=== PATIENT | female | born 1985 | race Caucasian/White ===

== ENCOUNTER 2022-12-28 19:39 | Emergency (ER) | payer OTHER, SELFPAY ==
--- NOTE | ~2022-12-28 | XR_ITS ---
EXAMINATION: XR chest 1V portable Exam Date/Time: 12/28/2022 21:01 CDT HISTORY: Chest pain Comparison: None available. RESULT: Lines, tubes, and devices: None. Lungs and pleura: Clear. Cardiomediastinal silhouette: Normal. Other: No acute osseous or upper abdominal finding. IMPRESSION: No acute cardiopulmonary process. Reviewed, dictated and finalized at location K.
[2022-12-28 19:41] VITALS: BP 151/88; PULSE 140; RESP 22; TEMP 36.3; O2SAT 100
[2022-12-28 19:59] LABS: Basophils Absolute Auto 0.1 K/mm3 (0.0-0.1); Basophils Percent Auto 0.6 % (0.2-1.2); Eosinophils Percent Auto 0.2 % (0-4.4); Hematocrit 44.2 % (37.0-47.0); Hemoglobin 14.5 g/dL (12.0-15.0); Immature Granulocyte Absolute 0.06 K/mm3 (0.00-0.031); Immature Granulocyte Percent A 0.4 % (0-0.5); Lymphocytes Absolute Auto 3.73 K/mm3 (0.9-3.2); Lymphocytes Percent Auto 26.5 % (18.3-44.2); Mean Corpuscular HGB Conc 32.8 g/dl (32-36); Mean Corpuscular Volume 88.4 fl (80-100); Mean Platelet Volume 9.9 fl (7.4-10.4); Monocytes Absolute Auto 1.1 K/mm3 (0.1-0.6); Monocytes Percent Auto 7.6 % (2.6-8.5); Neutrophils Absolute Auto 9.1 K/mm3 (1.3-6.7); Neutrophils Percent Auto 64.7 % (45.5-73.1); Platelet Count Result 543 k/mm3 (150-375); Red Cell Distribution Width 13.1 % (11.5-14.5); White Blood Count 14.1 K/mm3 (4.5-10.0)
[2022-12-28 20:10] LABS: Ethanol < 10 mg/dL (<10)
[2022-12-28 20:11] LABS: Alanine Aminotransferase 28 U/L (6-35); Albumin Level 5.1 g/dL (3.5-5.1); Alkaline Phosphatase 76 U/L (38-126); Anion Gap 13 mmol/L (8-16); Aspartate Amino Transferase 31 U/L (14-36); Bilirubin,Total 1.4 mg/dL (0.2-1.3); Blood Urea Nitrogen 15 mg/dL (7-17); Calcium 9.5 mg/dL (8.4-10.2); Carbon Dioxide 20 mmol/L (22-30); Chloride 105 mmol/L (98-107); Estimated CRCL calculation 66 ml/min; Estimated Glomerular Filt Rate > 60; Glucose 129 mg/dL (65-110); Potassium 4.7 mmol/L (3.4-5.0); Sodium 138 mmol/L (137-145)
--- NOTE | 2022-12-28 20:31 | PC.NURSE ---
patient has $326.00 in carpenter in purse. counted with both patient and data analyst report writer. 300$ in 20s, $10 in 10s, 16$ in 1s
--- NOTE | 2022-12-28 21:03 | ECG_ITS ---
Measurements Intervals [place] Rate: 81 P: 15 NH: 98 QRS: 78 QRSD: 100 T: 54 QT: 350 QTc: 407 Interpretive Statements SINUS RHYTHM WITH SINUS ARRHYTHMIA WITH SHORT NH INTERVAL BASELINE ARTIFACT- I, III, AVL, AVF BORDERLINE ECG NO PREVIOUS ECG AVAILABLE FOR COMPARISON Electronically Signed On 12-28-2022 21:12:53 CDT by Josesito Pfeiffer D.O.
[2022-12-28 21:06] LABS: Amphetamine Screen Urine Positive (Negative); Barbiturate Screen Urine Negative (Negative); Benzodiazepines Screen Urine Negative (Negative); Cannabinoid Screen Urine Positive (Negative); Cocaine Screen Urine Positive (Negative); Methadone Screen Urine Negative (Negative); Opiate Screen Urine Negative (Negative); Phencyclidine Screen Urine Negative (Negative)
[2022-12-28 21:07] LABS: Appearance Urine Cloudy (Clear); Bacteria Urine 2+ /hpf; Bilirubin Urine 1+ (Negative); Blood Urine 1+ (Negative); Color Urine Dark Yellow (Yellow); Glucose Urine UA Negative (Negative); Hyaline Casts Urine Present /lpf; Ketones Urine 1+ mg/dL (Negative); Leukocyte Esterase Ur Negative LEU/UL (Negative); Mucus Urine Present /lpf; Need Manual Microscopic Reviewed; Nitrate Urine Negative (Negative); Non Pathogenic Casts >20; Protein Urine 2+ mg/dL (Negative); Specific Grav Ur 1.027 (1.001-1.035); Squamous Epithelial Cell Urine Many /hpf (Few)
[2022-12-28 21:09] LABS: Add Urine Microscopic? YES
[2022-12-28] MEDS: LORazepam (*CRX) 1 MG TABLET PO (21:09)
[2022-12-28 21:27] LABS: Influenza A QL RT-PCR Negative (Negative); Influenza B QL RT-PCR Negative (Negative); SARS-CoV-2 RNA PCR Negative (Negative)
--- NOTE | 2022-12-28 21:27 | ED.GENADULT ---
HPI - General Adult General Chief complaint: Psychiatric Symptoms Stated complaint: crisis, SI Time Seen by Provider: 12/28/22 20:20 History of Present Illness HPI narrative: this is a 37-year-old female with history of anxiety and depression presenting ED for suicidal ideation. She says she does not feel good. This BUN for years but worse over the last couple weeks due to increased anxiety. She says that she does not want wake up in the morning. She does not have access to a firearm. She does not have a plan for suicide. She denies homicidal ideation or hallucinations. She denies use of drugs or alcohol. patient has been having multiple panic attacks which she associates with chest The resides with the anxiety attacks. She is not currently the experiencing Related Data Allergies Allergy/AdvReac Type Severity Reaction Status Date / Time No Known Allergies Allergy Mild Verified 12/28/22 19:39 [facility] Past Medical History Medical History (Updated 12/30/22 @ 00:00 by [facility]) BMI 20.0-20.9, adult Body mass index (BMI) 19 to less than 21 Irritable bowel syndrome with diarrhea Small intestinal bacterial overgrowth (SIBO) Family History Family History Father Lymphoma Acute myocardial infarction Non Hodgkin's lymphoma Mother Thyroid activity decreased Louisa's disease Sibling No problems noted. 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 EYES: EOMI, NOSE: Atraumatic NECK: Trachea midline RESPIRATORY: No increased rate of breathing, clear to auscultation CARDIOVASCULAR: RRR, no peripheral edema ABDOMINAL: Non-distended soft nontender no guarding or rebound MUSCULOSKELETAl: No obvious deformities NEURO: Alert. Moving 4/4 extremities SKIN:: Warm, dry. Normal color PSYCHIATRIC: anxious and emotionally labile Course Course Emergency Course: 0700: Signed out to oncoming physician pending transfer to psych facility on a voluntary basis. Vital Signs Vital signs: Vital Signs Temperature 97.3 F L 12/28/22 19:41 Pulse Rate 140 H 12/28/22 19:41 Respiratory Rate 22 H 12/28/22 19:41 Blood Pressure 151/88 H 12/28/22 19:41 Pulse Oximetry 100 12/28/22 19:41 Oxygen Delivery Room Air 12/28/22 19:41 Temperature 98 F 12/29/22 06:18 Pulse Rate 95 12/29/22 09:35 Respiratory Rate 20 12/29/22 09:35 Blood Pressure 131/83 12/29/22 09:35 Pulse Oximetry 100 12/29/22 09:35 Oxygen Delivery Room Air 12/28/22 19:41 Medical Decision Making MDM Narrative Medical decision making narrative: -Presentation: 37-year-old female presenting with anxiety and suicidal ideation. 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 She lives alone with her dog. -External Chart Review: None -Hx from independent Sources: none -Discussion of Management/Consultants: Crisis Center -Independent interpretation of studies: CBC showed a white count of 14. Likely s
[2022-12-28 22:28] VITALS: BP 130/74; PULSE 80; RESP 16; O2SAT 100
--- NOTE | 2022-12-28 23:52 | PC.NURSE ---
Crisis here to speak w/ pt.
[2022-12-29 02:22] LABS: Acetaminophen < 10 ug/mL (10-30)
--- NOTE | 2022-12-29 04:18 | PC.NURSE ---
Required papers faxed back to [facility] in [place], [place].
[2022-12-29 06:18] VITALS: BP 123/74; PULSE 77; RESP 18; TEMP 36.6; O2SAT 99
--- NOTE | 2022-12-29 06:19 | PC.NURSE ---
Report given to Rufina TAMEZ at [facility]
--- NOTE | 2022-12-29 06:25 | PC.NURSE ---
Contacted [facility] to set up transportations services to take pt to [facility]. Dispatch states since this is considered a long distance transportation, they will need approval from table games supervisor and will call back w/ an ETA .
--- NOTE | 2022-12-29 06:52 | PC.NURSE ---
[facility] nurses station number: [phone]
--- NOTE | 2022-12-29 09:32 | PC.NURSE ---
EDP aware of CSRR. Ok with sitter being pulled.
[2022-12-29 09:35] VITALS: BP 131/83; PULSE 95; RESP 20; O2SAT 100
== END 2022-12-29 10:26 ==
PROVIDERS: Emergency Provider Emergency Medicine; PCP Family Medicine
DX: R45.851 Suicidal ideations (principal); F41.9 Anxiety disorder, unspecified; F15.90 Other stimulant use, unspecified, uncomplicated; F14.90 Cocaine use, unspecified, uncomplicated; F12.90 Cannabis use, unspecified, uncomplicated; Z20.822 Contact with and (suspected) exposure to COVID-19; K58.0 Irritable bowel syndrome with diarrhea
CPT/HCPCS: 36415; 71045; 80053; 80307; 81001; 81025; 84443; 85025; 87086; 87636; 93005; 99285; A9270

== ENCOUNTER 2024-02-15 14:09 | Emergency (ER) | payer OTHER, SELFPAY ==
[2024-02-15 14:07] VITALS: BP 134/85; PULSE 120; RESP 16; TEMP 36.7; O2SAT 100
[2024-02-15 14:28] LABS: Basophils Percent Auto 0.4 % (0.2-1.2); Eosinophils Percent Auto 0.1 % (0-4.4); Hematocrit 42.2 % (37.0-47.0); Hemoglobin 13.9 g/dL (12.0-15.0); Immature Granulocyte Absolute 0.03 K/mm3 (0.00-0.031); Immature Granulocyte Percent A 0.3 % (0-0.5); Lymphocytes Absolute Auto 3.23 K/mm3 (0.9-3.2); Lymphocytes Percent Auto 34.5 % (18.3-44.2); Mean Corpuscular HGB Conc 32.9 g/dl (32-36); Mean Corpuscular Hemoglobin 28.8 pg (26-34); Mean Corpuscular Volume 87.6 fl (80-100); Monocytes Absolute Auto 0.8 K/mm3 (0.1-0.6); Neutrophils Absolute Auto 5.2 K/mm3 (1.3-6.7); Neutrophils Percent Auto 55.7 % (45.5-73.1); Platelet Count Result 403 k/mm3 (150-375); Red Blood Count 4.82 M/mm3 (4.2-5.4); Red Cell Distribution Width 12.6 % (11.5-14.5); White Blood Count 9.4 K/mm3 (4.5-10.0)
[2024-02-15 14:35] LABS: Ethanol < 10 mg/dL (<10)
[2024-02-15 14:37] LABS: Alanine Aminotransferase 12 U/L (6-35); Albumin Level 4.9 g/dL (3.5-5.1); Alkaline Phosphatase 79 U/L (38-126); Anion Gap 8 mmol/L (4-12); Aspartate Amino Transferase 21 U/L (14-36); Bilirubin,Total 1.2 mg/dL (0.2-1.3); Blood Urea Nitrogen 16 mg/dL (7-17); Calcium 9.5 mg/dL (8.4-10.2); Carbon Dioxide 25 mmol/L (22-30); Chloride 104 mmol/L (98-107); Estimated CRCL calculation 64 ml/min; Estimated Glomerular Filt Rate > 60; Glucose 112 mg/dL (65-110); Potassium 4.3 mmol/L (3.4-5.0); Sodium 137 mmol/L (137-145)
[2024-02-15 14:54] LABS: Appearance Urine Cloudy (Clear); Bacteria Urine 3+ /hpf; Bilirubin Urine Negative (Negative); Blood Urine Negative (Negative); Color Urine Dark Yellow (Yellow); Glucose Urine UA Negative (Negative); Ketones Urine 1+ mg/dL (Negative); Leukocyte Esterase Ur Negative LEU/UL (Negative); Mucus Urine Present /lpf; Need Manual Microscopic Reviewed; Nitrate Urine Negative (Negative); Protein Urine Trace mg/dL (Negative); RBC Urine 0-2 /hpf (0-2); Squamous Epithelial Cell Urine Moderate /hpf (Few); WBC Urine 0-5 /hpf (0-3); pH Urine 5.5 (5.0-9.0)
[2024-02-15 14:55] LABS: Add Urine Microscopic? YES; Amphetamine Screen Urine Negative (Negative); Barbiturate Screen Urine Negative (Negative); Benzodiazepines Screen Urine Negative (Negative); Cannabinoid Screen Urine Positive (Negative); Cocaine Screen Urine Negative (Negative); Methadone Screen Urine Negative (Negative); Opiate Screen Urine Negative (Negative); Phencyclidine Screen Urine Negative (Negative)
--- NOTE | 2024-02-15 14:56 | ED.GENADULT ---
HPI - General Adult General Chief complaint: Psychiatric Symptoms Stated complaint: SI Time Seen by Provider: 02/15/24 14:16 History of Present Illness HPI narrative: 48-year-old female presenting to the emergency department for evaluation for suicidal ideation. Patient does have a previous psych history and had been taking duloxetine, Wellbutrin, Abilify and lamotrigine but stop taking the Abilify and the bladder drained approximately 2 weeks ago. Patient states she uses taking too many medications and did not want to take for medications. Patient states after stopping the Abilify and lamotrigine that she had worsening psych symptoms. Patient reports decreased p.o. intake. Patient states that she has had increased suicidal thoughts and does have a plan. Patient did not confirm that she wants to act on this plan. Patient does have a prior history of inpatient psych treatment at [facility] last December, patient does not want to go back to that facility. Related Data Home Medications Medication Instructions Recorded Confirmed aripiprazole 5 mg tablet 5 mg PO QHS 01/13/23 01/13/23 bupropion HCl 150 mg 24 hr tablet, 150 mg PO QAM 01/13/23 01/13/23 extended release duloxetine 30 mg capsule,delayed 60 mg PO DAILY 01/13/23 01/13/23 release (Cymbalta) hydroxyzine pamoate 50 mg capsule 50 mg PO QID PRN 01/13/23 01/13/23 trazodone 50 mg tablet 50 mg PO QHS PRN 01/13/23 01/13/23 Allergies Allergy/AdvReac Type Severity Reaction Status Date / Time No Known Allergies Allergy Mild Verified 01/13/23 12:50 Review of Systems Review of Systems: All systems reviewed & are unremarkable except as noted in HPI and below PMFSH Past Medical History Medical History BMI 20.0-20.9, adult Body mass index (BMI) 19 to less than 21 Irritable bowel syndrome with diarrhea Small intestinal bacterial overgrowth (SIBO) Family History Family History Father Lymphoma Acute myocardial infarction Non Hodgkin's lymphoma Mother Thyroid activity decreased Louisa's disease Sibling No problems noted. 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 HEAD: normocephalic, atraumatic. EYES: PERRLA/EOMI, conjunctivae clear. NOSE: Normal no drainage EARS:TMS clear with good light reflex. THROAT: Pharynx clear, no exudate. NECK: Supple. No adenopathy, no masses. RESPIRATORY: Airway patent, respirations nonlabored. Clear to auscultation bilaterally, no rales, rhonchi, wheezing. CARDIOVASCULAR: Regular rate and rhythm without murmurs rubs or gallops. ABDOMINAL: Soft, nontender, nondistended, normal bowel sounds MUSCULOSKELETAL: Moves all extremities. Strength/ROM intact, No edema, No calf tenderness. NEURO: Alert. Cranial nerves II through XII intact. Grossly intact SKIN: Warm, dry. Normal Color Course Vital Signs Vital signs: Vital Signs Temperature 98.1 F 02/15/24 14:07 Pulse Rate 120 H 02/15/24 14:07 Respiratory Rate 16 02/15/24 14:07 Blood Pressure 134/85 02/15/24 14:07 Pulse Oximetry 100 02/15/24 14:07 Oxygen Delivery Room Air 02/15/24 14:07 Temp
[2024-02-15 15:02] LABS: SARS-CoV-2 RNA PCR Negative (Negative)
--- NOTE | 2024-02-15 15:06 | ECG_ITS ---
Test Date: 2024-02-15 15:17:01 Measurements Intervals [place] Rate: 54 P: -20 VA: 124 QRS: 71 QRSD: 96 T: 61 QT: 427 QTc: 405 Interpretive Statements SINUS BRADYCARDIA No previous ECG available for comparison Electronically Signed On 02-16-2024 14:28:20 CDT by Parag Sawyer M.D.
[2024-02-15 15:46] LABS: Acetaminophen < 10 ug/mL (10-30); Ethanol < 10 mg/dL (<10); Salicylate < 1.0 mg/dL (2-20)
[2024-02-15] MEDS: LORazepam (*CRX) 1 MG TABLET PO (16:35)
--- NOTE | 2024-02-15 17:30 | PC.NURSE ---
patient evaluated and given safety plan by CRISIS, provider in agreement with plan of care. she took wellbutrin and duloxetine from medication she brought with her and states that she takes lamictal and abilify at night and is refusing to take at this time
[2024-02-15 17:31] VITALS: BP 126/82; PULSE 99; RESP 20; O2SAT 100
== END 2024-02-15 17:32 | disposition home or self-care (01) ==
PROVIDERS: Emergency Provider Emergency Medicine; PCP Family Medicine
DX: F32.A Depression, unspecified (principal); T43.596A Underdosing of other antipsychotics and neuroleptics, initial encounter; T42.6X6A Underdosing of other antiepileptic and sedative-hypnotic drugs, initial encounter; Z91.128 Patient's intentional underdosing of medication regimen for other reason; Z11.52 Encounter for screening for COVID-19; K58.0 Irritable bowel syndrome with diarrhea; Z77.22 Contact with and (suspected) exposure to environmental tobacco smoke (acute) (chronic); Z79.899 Other long term (current) drug therapy; R00.1 Bradycardia, unspecified
CPT/HCPCS: 36415; 80053; 80307; 81001; 81025; 84443; 85025; 87635; 93005; 99284; A9270

== ENCOUNTER 2025-05-29 21:43 | Emergency (ER) | payer OTHER, SELFPAY ==
--- OUTSIDE RECORDS SUMMARY | 2012-11-08 10:00 | XMS_ITS | Continuity of Care Document ---
Author Organization [facility] Address [address] [place] [address] [place] [address] Phone Care Team Providers Care Tarp Repairer Name Role Phone Yovanny Daly OD Unavailable Unavailable Procedures Procedure Date Routine Exam-Establ Pt Contact Lens Check Contact Lens Fitting, Medical Superv Jan Refractive Evaluation Advance Directives Directive Yes / No Effective Date File Name No Information Encounters Encounter Description Practice Location Reason(s) For Visit Diagnoses Date Provider Providers Copied on Encounter [facility], [address] [place] [address] [address], [place], [place], [id number], tel:[phone] [facility] No Information Addy Hairston. [address], [facility], . tel:[phone] Referring Provider: Yovanny Aguilera, [address], [facility]. tel:[phone] [facility], [address] [place] [address] [address], [place], [place], [id number], tel:[phone] [facility] No Information Addy Hairston. [address], [facility], [place]. tel:[phone] Referring Provider: Yovanny Aguilera, [address], [facility]. tel:[phone] [facility], [address] [facility], [place], [place], [id number], tel:[phone] [facility] No Information Addy ROBERTSON Yovanny. 200 [facility], [address], [facility], . tel:[phone] Referring Provider: Yovanny Aguilera, [address], [facility]. tel:[phone] [facility], [address] [facility], [place], [place], [id number], tel:[phone] [facility] No Information Addy ROBERTSON Yovanny. 200 [facility], [address], [facility], . tel:[phone] Referring Provider: Yovanny Aguilera, [address], [facility]. tel:[phone] Family History Family Member Type Diagnosis Age At Onset No Information Payers Payer name Insurance type Covered alliance party ID Authoriza tion(s) No Information Social History Type Description Quantity Date Captured Comments Sex Female Smoking Status No Information Chief Complaint And Reason For Visit No Information Reason For Referral Reason For Referral No Information History Of Present Illness Encounter Date Complaint History Of Prese nt Illness No Information Functional Status Date Functional Assessmen t No Information Instructions Date Instruction Additional Infor mation No Information Assessments Type Assessment Date No Information Patient Care Teams Name Effective Dates (start - stop) Status Members No Information
[2025-05-29 21:59] VITALS: BP 149/92; PULSE 58; RESP 18; TEMP 36.5; O2SAT 100
--- OUTSIDE RECORDS SUMMARY | 2025-05-29 22:37 | XMS_ITS | Patient Health Record ---
Author Organization [facility] As [facility] Address [address] [place] [address] Care Team Providers Care Oracle Specialist Name Role Phone Lonnie BOYKIN, William Primary Care Provider Robyn Grady Unavailable [phone] Allergies No Known Allergies Reason For Referral No Information Medications Medication SIG (Take, Route, Frequency, Duration) Notes Start Date End Date Status DULoxetine HCl 60 MG Capsule Delayed Release Particles 1 capsule Oral Once a day; Duration: 90 days Active DULoxetine HCl 30 MG Capsule Delayed Release Particles 1 capsule Orally Once a day; Duration: 30 days TOTAL 90 MG DAILY 03/20/2025 Active ARIPiprazole 5 MG Tablet 1 tablet at bedtime Orally Once a day; Duration: 30 days Active Social History Tobacco Use: Social History Observation Description Date Details (start date - stop date) Never Smoker NA - NA Sex Assigned At : Social History Observation Description Sex Assigned At Female Social History Sexual History: Social Info Question Answer Notes Sexual History Had sex in the past 12 months (vaginal, oral, or anal)? Yes with Men only Household: Social Info Question Answer Notes Household Marital status: single Number of adults in household: 1 Number of children in household: 0 Any household pets? Yes dog Drug/Alcohol: Social Info Question Answer Notes Drugs Have you used drugs other than those for medical reasons in the past 12 months? Yes Marijuana? Yes AUDIT-C (Standard) Did you have a drink containi ng alcohol in the past year? Yes How often did you have six or more drinks on one occasion in the past year? Less than monthly (1 point) How many drinks did you have on a typical day when you were drinking in the past year? 3 or 4 drinks (1 point) How often did you have a drink containing alcohol in the past year? 2 to 4 times a month (2 points) Caffeine Intake: 1-2 cups per day Tobacco Use: Social Info Question Answer Notes Tobacco Control (Standard) Tobacco use: Nonsmoker Additional Details Category Social Info Options Details Migrated Social History Migrated Social History Alcohol Intake: Moderate 01/14/2023,Tobacco Years: Never smoker 11/26/2022, Alcohol Intake: Moderate 01/14/2023,Tobacco Years: Never smoker 11/26/2022 Drug/Alcohol: Do you smoke marijuana? Admits Do you drink alcohol? Yes, Socia lly Section Notes: Do you or have you ever smok ed tobacco?: Never smokerHow much tobacco do you smoke?: NoneDo you or have you ever used any other forms of tobacco or nicotine?: NoDo you or have you ever used e-cigarettes or vape?: Never used electronic cigarettesWhat was the date of your most recent tobacco screening?: 09/06/2023Has tobacco cessation counseling been provided?: NoWhat is your level of alcohol consumption?: ModerateHow many years have you consumed alcohol?: 15Have you ever been counseled for unhealthy alcohol use?: NoDo you use any illicit or recreational drugs?: YesWhich illicit or recreational drugs have you used?: Marijuana and cocaineHave you used IV drugs?: NoWhat is your level of caffeine consumption?: HeavyEducation and OccupationWhat is the highest grade or level of school you have completed or the highest degree you have received?: Bachelor's degree (e.g., BA, AB, BS)Are you currently in school?: NoAre you currently employed?: YesWho is your employer?: [place] [employer] and [place]riage and SexualityWhat is your relationship status?: SingleAre you sexually active?: YesDo you use protection during sex?: UsuallyHow many children do you have?: 0Home and EnvironmentAre you a caregiver?: NoAre there any guns present in your home?: NoLifestyleDo you participate in social media?: YesDo you use your seat belt or car seat routinely?: YesAdvance DirectiveDo you have an advance directive?: NoWhat is your code status?: Full CodeDo you have a medical power of securities attorney?: NoPublic Health and TravelHave you been to an area known to be high risk for COVID-19?: NoGender Identity and LGBTQ IdentityGender identity: Identifies as FemaleAssigned sex at : FemalePronouns: she/herSexual orientation: Straight or heterosexual Problems Problem Type SNOMED Code ICD Code Onset Dates Problem Status W/U Status Risk Notes Problem Information temporarily unavailable Major depressive disorder, recurrent, mild (F33.0) 4 Active confirmed Problem Information temporarily unavailable Major depressive disorder, recurrent severe without psychotic features (F33.2) 4 Active confirmed Problem Information temporarily unavailable Generalized anxiety disorder (F41.1) 4 Active confirmed Problem Information temporarily unavailable Primary insomnia (F51.01) 4 Active confirmed Problem Information temporarily unavailable Other intermediate (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 (Z79.899) 4 Active confirmed Problem Information temporarily unavailable MDD (major depressive disorder), recurrent episode, moderate (F33.1) Active confirmed Problem Information temporarily unavailable Suicidal risk (R45.89) Active confirmed Problem Information temporarily unavailable Suicidal ideation (R45.851) Active confirmed Vital Signs Heart Rate 53 /min 04/16/2025 Respiratory Rate 16 /min 03/20/2025 Height-cm 162.56 cm 04/16/2025 Blood pressure diastolic 78 mm Hg 04/16/2025 Weight-kg 49.44 kg 04/16/2025 Height 64.00 in 04/16/2025 Blood pressure systolic 119 mm Hg 04/16/2025 Weight 109 lbs 04/16/2025 BMI 18.71 kg/m2 04/16/2025 Encounters Encounter Location Date Provider Diagnosis [facility] [employer] [address] [address] 08/03/2024 Robyn Curiel [facility] [employer] [facility] [address] [address] 10/31/2024 Robyn Curiel Major depressive disorder, recurrent, mild F33.0 ; Generalized anxiety disorder F41.1 ; Primary insomnia F51.01 ; Other 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 Z79.899 ; Suicidal risk R45.89 and Suicidal ideation R45.851 [facility] [employer] [facility] [address] [facility] [address] [place] [address] 01/30/2025 [facility] [place] [address] [address] 03/06/2025 Robyn Thermac [facility], [address] [address] 03/20/2025 Robyn Thermac Generalized anxiety disorder F41.1 ; MDD (major depressive disorder), recurrent episode, moderate F33.1 ; Primary insomnia F51.01 ; Other intermediate (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 Z79.899 ; Suicidal risk R45.89 and Suicidal ideation R45.851 [facility] [employer] [place] [address] [address] 04/11/2025 Robyn [facility]mac Generalized anxiety disorder F41.1 ; Major depressive disorder, recurrent severe without psychotic features F33.2 ; Primary insomnia F51.01 ; Other 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 Z79.899 ; Suicidal risk R45.89 and Suicidal ideation R45.851 [facility] [employer] [place] [address] [address] 04/16/2025 Robyn [facility]mac Generalized anxiety disorder F41.1 ; Major depressive disorder, recurrent, mild F33.0 ; Primary insomnia F51.01 ; Other 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 Z79.899 ; Suicidal risk R45.89 and Suicidal ideation R45.851 [facility] [employer] [address] [address] 05/07/2025 Robynjayne Curiel [facility], [address] [address] 03/20/2025 Robyn [facility]mac [facility], [place] [address] [address] [facility] [address] [address] 04/11/2025 Robyn Curiel Assessments Encounter Date Diagnosis (ICD Code) Assessment Notes Treatment Notes Treatment Clinical Notes Section Notes 04/16/2025 Major depressive disorder, recurrent, mild (ICD-10 - F33.0) 1. depression - - patient has hx inpatient [place] 12/2022 discuss and educated on all rx Abilify 5 mg at bedtime- improved depression on rx last week Second generation antipsychotics (SGAs) have metabolic syndrome issues with weight gain, increase in prolactin, increased waist circumference, increased lipids, and increased glucose. Thus routine monitoring of weight, metabolic labs, etc. is indicated. A general rank ordering of antipsychotics that have the greatest to the least risk of metabolic effects is olanzapine, quetiapine, risperidone, ziprasidone, and aripiprazole. However, weight gain can occur with all of these drugs and considerable variability exists among patients receiving the same drug regarding the risk of metabolic effects. Anti-psychotic agents not only increase the risk of metabolic disorder, they also increase the risk of CVA, akathisia, and movement disorders including EPS or tardive dyskinesia (more common with first generation antipsychotics) and more. - [facility] 06/22 FLIA forms completed- need to have updated for 04/23 dates off work - completed today duloxetine 90 mg capsule, daily in am for depression and anxiety no refill needed 2. Generalized anxiety disorder - Cymblata 90 mg daily continue therapy- Patient reported does not want to attend [facility] again r/t work discuss walk in clinic to see Bea at [facility] - will go PRN plans to go to work program then refer to therapist with job SSRI side effects discussed including but not limited to, gastric upset, nausea, vomiting, diarrhea and/or constipation, weight changes, sexual side effects including loss of libido, increased suicidal thoughts/behavio rs in children and young adults, and serotonin syndrome. educated on all medications, benefits, side effects and risk, and educated on depression, anxiety, and ADHD, mood d/o and educated on compliance of medications, metabolic and movement d/o education appointment's, continue therapy discussion with patient about course of treatmentand patient instructions. education on serotonin syndrome 3. Primary insomnia - sleep hygeine 4.passive suicide thoughts- Improved on Abilify no plans or intent educated on [phone] Support system safety plan- friend stay with her plan to go to Bea therapy [facility] 04/12/25 limited rx at a time no weapons in home go to nearest ER if have passive/active thoughts, plans or intent schedule therapy- on wait list- has work options to call for therapist walk in clinic therapist discuss with [facility] Long-term drug therapy. 04/16/2025 Generalized anxiety disorder (ICD-10 - F41.1) Learning About Generalized Anxiety Disorder material was published, Generalized Anxiety Disorder: Care Instructions material was published, Learning About Anxiety Disorders material was published, Learning About Generalized Anxiety Disorder material was published, Generalized Anxiety Disorder: Care Instructions material was published, Learning About Anxiety Disorders material was published, Learning About Generalized Anxiety Disorder material was published 1. depression - - patient has hx inpatient [place] 12/2022 discuss and educated on all rx Abilify 5 mg at bedtime- improved depression on rx last week Second generation antipsychotics (SGAs) have metabolic syndrome issues with weight gain, increase in prolactin, increased waist circumference, increased lipids, and increased glucose. Thus routine monitoring of weight, metabolic labs, etc. is indicated. A general rank ordering of antipsychotics that have the greatest to the least risk of metabolic effects is olanzapine, quetiapine, risperidone, ziprasidone, and aripiprazole. However, weight gain can occur with all of these drugs and considerable variability exists among patients receiving the same drug regarding the risk of metabolic effects. Anti-psychotic agents not only increase the risk of metabolic disorder, they also increase the risk of CVA, akathisia, and movement disorders including EPS or tardive dyskinesia (more common with first generation antipsychotics) and more. - [facility] 06/22 FLMA forms completed- need to have updated for 04/23 dates off work - completed today duloxetine 90 mg capsule, daily in am for depression and anxiety no refill needed 2. Generalized anxiety disorder - Cymblata 90 mg daily continue therapy- Patient reported does not want to attend [facility] again r/t work discuss walk in clinic to see Bea at [facility] - will go PRN plans to go to work program then refer to therapist with job SSRI side effects discussed including but not limited to, gastric upset, nausea, vomiting, diarrhea and/or constipation, weight changes, sexual side effects including loss of libido, increased suicidal thoughts/behavio rs in children and young adults, and serotonin syndrome. educated on all medications, benefits, side effects and risk, and educated on depression, anxiety, and ADHD, mood d/o and educated on compliance of medications, metabolic and movement d/o education appointment's, continue therapy discussion with patient about course of treatmentand patient instructions. education on serotonin syndrome 3. Primary insomnia - sleep hygeine 4.passive suicide thoughts- Improved on Abilify no plans or intent educated on [phone]/911 Support system safety plan- friend stay with her plan to go to Bea therapy [facility] 04/12/25 limited rx at a time no weapons in home go to nearest ER if have passive/active thoughts, plans or intent schedule therapy- on wait list- has work options to call for therapist walk in clinic therapist discuss with [facility] Long-term drug therapy. 04/11/2025 Major depressive disorder, recurrent severe without psychotic features (ICD-10 - F33.2) Preventing Depression From Coming Back: Care Instructions material was published, Depression Treatment: Care Instructions material was published, Seasonal Affective Disorder: Care Instructions material was published, Learning About Depression material was published, Learning About Depression Screening material was published, Learning About How to Get Help During a Mental Health Crisis material was published, Recovering From Depression: Care Instructions material was published, Depression and Chronic Disease: Care Instructions material was published, Learning About Antidepressants material was published, Learning About Transcranial Magnetic Stimulation (TMS) material was published, Suicidal Thoughts and Behavior: Care Instructions material was published, Learning About Mood Disorders material was published 1. depression - - patient has inpatient [place] 12/2022 discuss and educated on add Abilify 5 mg at bedtime Second generation antipsychotics (SGAs) have metabolic syndrome issues with weight gain, increase in prolactin, increased waist circumference, increased lipids, and increased glucose. Thus routine monitoring of weight, metabolic labs, etc. is indicated. A general rank ordering of antipsychotics that have the greatest to the least risk of metabolic effects is olanzapine, quetiapine, risperidone, ziprasidone, and aripiprazole. However, weight gain can occur with all of these drugs and considerable variability exists among patients receiving the same drug regarding the risk of metabolic effects. Anti-psychotic agents not only increase the risk of metabolic disorder, they also increase the risk of CVA, akathisia, and movement disorders including EPS or tardive dyskinesia (more common with first generation antipsychotics) and more. - [facility] 06/22 FLMA forms completed- need to have updated for 04/23 dates off work - patient will send new forms duloxetine 90 mg capsule, daily in am for depression and anxiety no refill needed 2. Generalized anxiety disorder - Cymblata 90 mg daily continue therapy- pateint will call [facility] - Patient reported does not want to attend [facility] again r/t work discuss walk in clinic to see Bea at [facility] - plans to go 04/12/25 SSRI side effects discussed including but not limited to, gastric upset, nausea, vomiting, diarrhea and/or constipation, weight changes, sexual side effects including loss of libido, increased suicidal thoughts/behavio rs in children and young adults, and serotonin syndrome. educated on all medications, benefits, side effects and risk, and educated on depression, anxiety, and ADHD, mood d/o and educated on compliance of medications, metabolic and movement d/o education appointment's, continue therapy discussion with patient about course of treatmentand patient instructions. education on serotonin syndrome 3. Primary insomnia - sleep hygeine 4.passive suicide thoughts no plans or intent educated on [id number]/911 Support system safety plan- friend stay with her plan to go to [facility] 04/12/25 limited rx at a time no weapons in home go to nearest ER if have passive/active thoughts, plans or intent schedule therapy- on wait list- has work options to call for therapist walk in clinic therapist discuss with [facility] Long-term drug therapy. 04/11/2025 Generalized anxiety disorder (ICD-10 - F41.1) Learning About Generalized Anxiety Disorder material was published, Generalized Anxiety Disorder: Care Instructions material was published, Learning About Anxiety Disorders material was published, Learning About Generalized Anxiety Disorder material was published, Generalized Anxiety Disorder: Care Instructions material was published, Learning About Anxiety Disorders material was published, Learning About Generalized Anxiety Disorder material was published 1. depression - - patient has hx inpatient [place] 12/2022 discuss and educated on add Abilify 5 mg at bedtime Second generation antipsychotics (SGAs) have metabolic syndrome issues with weight gain, increase in prolactin, increased waist circumference, increased lipids, and increased glucose. Thus routine monitoring of weight, metabolic labs, etc. is indicated. A general rank ordering of antipsychotics that have the greatest to the least risk of metabolic effects is olanzapine, quetiapine, risperidone, ziprasidone, and aripiprazole. However, weight gain can occur with all of these drugs and considerable variability exists among patients receiving the same drug regarding the risk of metabolic effects. Anti-psychotic agents not only increase the risk of metabolic disorder, they also increase the risk of CVA, akathisia, and movement disorders including EPS or tardive dyskinesia (more common with first generation antipsychotics) and more. - [facility] 06/22 FLIA forms completed- need to have updated for 04/23 dates off work - patient will send new forms duloxetine 90 mg capsule, daily in am for depression and anxiety no refill needed 2. Generalized anxiety disorder - Cymblata 90 mg daily continue therapy- pateint will call [facility] program [facility] for new therapist - Patient reported does not want to attend [facility] again r/t work discuss walk in clinic to see Bea at [facility] - plans to go 04/12/25 SSRI side effects discussed including but not limited to, gastric upset, nausea, vomiting, diarrhea and/or constipation, weight changes, sexual side effects including loss of libido, increased suicidal thoughts/behavio rs in children and young adults, and serotonin syndrome. educated on all medications, benefits, side effects and risk, and educated on depression, anxiety, and ADHD, mood d/o and educated on compliance of medications, metabolic and movement d/o education appointment's, continue therapy discussion with patient about course of treatmentand patient instructions. education on serotonin syndrome 3. Primary insomnia - sleep hygeine 4.passive suicide thoughts no plans or intent educated on [phone] Support system safety plan- friend stay with her plan to go to Bea therapy [facility] 04/12/25 limited rx at a time no weapons in home go to nearest ER if have passive/active thoughts, plans or intent schedule therapy- on wait list- has work options to call for therapist walk in clinic therapist discuss with [facility] Long-term drug therapy. 10/31/2024 Major depressive disorder, recurrent, mild (ICD-10 - F33.0) Learning About Depression material was published, Preventing Depression From Coming Back: Care Instructions material was published, Learning About Depression Screening material was published, Seasonal Affective Disorder: Care Instructions material was published, Preventing Depression From Coming Back: Care Instructions material was published, Learning About How to Get Help During a Mental Health Crisis material was published, Learning About Depression material was published, Learning About Depression Screening material was published 1. depression - - patient has hx inpatient [facility] 12/2022 - [facility] 06/22 duloxetine 60 mg capsule, 2. Generalized anxiety disorder - Cymblata 60 mg daily continue therapy SSRI side effects discussed including but not limited to, gastric upset, nausea, vomiting, diarrhea and/or constipation, weight changes, sexual side effects including loss of libido, increased suicidal thoughts/behavio rs in children and young adults, and serotonin syndrome. educated on all medications, benefits, side effects and risk, and educated on depression, anxiety, and ADHD, mood d/o and educated on compliance of medications, metabolic and movement d/o education appointment's, continue therapy discussion with patient about course of treatmentand patient instructions. education on serotonin syndrome 3. Primary insomnia - sleep hygeine 4. Long-term drug therapy. 03/20/2025 Generalized anxiety disorder (ICD-10 - F41.1) Learning About Generalized Anxiety Disorder material was published, Generalized Anxiety Disorder: Care Instructions material was published, Learning About Anxiety Disorders material was published, Learning About Generalized Anxiety Disorder material was published, Generalized Anxiety Disorder: Care Instructions material was published, Learning About Anxiety Disorders material was published 1. depression - - patient has hx inpatient [place] 12/2022 - [employer] 06/22 FLMA forms completed increase duloxetine 90 mg capsule, daily in am for increase depression and anxiety patient just recieved 90 days of 60 mg dose no refill needed rx sent Cymbalta 30 mg dose 2. Generalized anxiety disorder - Cymblata 90 mg daily continue therapy- pateint will call [employer] for new therapist and also will see Bea in walk in clinic [facility] SSRI side effects discussed including but not limited to, gastric upset, nausea, vomiting, diarrhea and/or constipation, weight changes, sexual side effects including loss of libido, increased suicidal thoughts/behavio rs in children and young adults, and serotonin syndrome. educated on all medications, benefits, side effects and risk, and educated on depression, anxiety, and ADHD, mood d/o and educated on compliance of medications, metabolic and movement d/o education appointment's, continue therapy discussion with patient about course of treatmentand patient instructions. education on serotonin syndrome 3. Primary insomnia - sleep hygeine 4. Long-term drug therapy. 03/20/2025 MDD (major depressive disorder), recurrent episode, moderate (ICD-10 - F33.1) 1. depression - - patient has hx inpatient [place] 12/2022 - [employer] 06/22 FLMA forms completed increase duloxetine 90 mg capsule, daily in am for increase depression and anxiety patient just recieved 90 days of 60 mg dose no refill needed rx sent Cymbalta 30 mg dose 2. Generalized anxiety disorder - Cymblata 90 mg daily continue therapy- pateint will call [employer] for new therapist and also will see Bea in walk in clinic RIYA SSRI side effects discussed including but not limited to, gastric upset, nausea, vomiting, diarrhea and/or constipation, weight changes, sexual side effects including loss of libido, increased suicidal thoughts/behavio rs in children and young adults, and serotonin syndrome. educated on all medications, benefits, side effects and risk, and educated on depression, anxiety, and ADHD, mood d/o and educated on compliance of medications, metabolic and movement d/o education appointment's, continue therapy discussion with patient about course of treatmentand patient instructions. education on serotonin syndrome 3. Primary insomnia - sleep hygeine 4. Long-term drug therapy. 03/20/2025 Primary insomnia (ICD-10 - F51.01) Learning About Sleeping Well material was published, Insomnia: Care Instructions material was published, Insomnia: Care Instructions material was published, Learning About Sleeping Well material was published 1. depression - - patient has hx inpatient [place] 12/2022 - [facility] [place] 06/22 FLMA forms completed increase duloxetine 90 mg capsule, daily in am for increase depression and anxiety patient just recieved 90 days of 60 mg dose no refill needed rx sent Cymbalta 30 mg dose 2. Generalized anxiety disorder - Cymblata 90 mg daily continue therapy- pateint will call [facility] for [facility] therapist and also will see Bea in walk in clinic [facility]YA SSRI side effects discussed including but not limited to, gastric upset, nausea, vomiting, diarrhea and/or constipation, weight changes, sexual side effects including loss of libido, increased suicidal thoughts/behavio rs in children and young adults, and serotonin syndrome. educated on all medications, benefits, side effects and risk, and educated on depression, anxiety, and ADHD, mood d/o and educated on compliance of medications, metabolic and movement d/o education appointment's, continue therapy discussion with patient about course of treatmentand patient instructions. education on serotonin syndrome 3. Primary insomnia - sleep hygeine 4. Long-term drug therapy. 10/31/2024 Generalized anxiety disorder (ICD-10 - F41.1) Learning About Generalized Anxiety Disorder material was published, Generalized Anxiety Disorder: Care Instructions material was published, Learning About Anxiety Disorders material was published, Learning About Generalized Anxiety Disorder material was published, Generalized Anxiety Disorder: Care Instructions material was published, Learning About Anxiety Disorders material was published 1. depression - - patient has inpatient [place] 12/2022 - [facility] 06/22 duloxetine 60 mg capsule, 2. Generalized anxiety disorder - Cymblata 60 mg daily continue therapy SSRI side effects discussed including but not limited to, gastric upset, nausea, vomiting, diarrhea and/or constipation, weight changes, sexual side effects including loss of libido, increased suicidal thoughts/behavio rs in children and young adults, and serotonin syndrome. educated on all medications, benefits, side effects and risk, and educated on depression, anxiety, and ADHD, mood d/o and educated on compliance of medications, metabolic and movement d/o education appointment's, continue therapy discussion with patient about course of treatmentand patient instructions. education on serotonin syndrome 3. Primary insomnia - sleep hygeine 4. Long-term drug therapy. 04/11/2025 Primary insomnia (ICD-10 - F51.01) Learning About Sleeping Well material was published, Insomnia: Care Instructions material was published, Insomnia: Care Instructions material was published, Learning About Sleeping Well material was published 1. depression - - patient has inpatient [place] 12/2022 discuss and educated on add Abilify 5 mg at bedtime Second generation antipsychotics (SGAs) have metabolic syndrome issues with weight gain, increase in prolactin, increased waist circumference, increased lipids, and increased glucose. Thus routine monitoring of weight, metabolic labs, etc. is indicated. A general rank ordering of antipsychotics that have the greatest to the least risk of metabolic effects is olanzapine, quetiapine, risperidone, ziprasidone, and aripiprazole. However, weight gain can occur with all of these drugs and considerable variability exists among patients receiving the same drug regarding the risk of metabolic effects. Anti-psychotic agents not only increase the risk of metabolic disorder, they also increase the risk of CVA, akathisia, and movement disorders including EPS or tardive dyskinesia (more common with first generation antipsychotics) and more. - [facility] 06/22 FLMA forms completed- need to have updated for 04/23 dates off work - patient will send new forms duloxetine 90 mg capsule, daily in am for depression and anxiety no refill needed 2. Generalized anxiety disorder - Cymblata 90 mg daily continue therapy- pateint will call [facility] for new therapist - Patient reported does not want to attend [facility] again r/t work discuss walk in clinic to see Bea at [facility] - plans to go 04/12/25 SSRI side effects discussed including but not limited to, gastric upset, nausea, vomiting, diarrhea and/or constipation, weight changes, sexual side effects including loss of libido, increased suicidal thoughts/behavio rs in children and young adults, and serotonin syndrome. educated on all medications, benefits, side effects and risk, and educated on depression, anxiety, and ADHD, mood d/o and educated on compliance of medications, metabolic and movement d/o education appointment's, continue therapy discussion with patient about course of treatmentand patient instructions. education on serotonin syndrome 3. Primary insomnia - sleep hygeine 4.passive suicide thoughts no plans or intent educated on [id number] Support system safety plan- friend stay with her plan to go to Bea therapy [facility] 04/12/25 limited rx at a time no weapons in home go to nearest ER if have passive/active thoughts, plans or intent schedule therapy- on wait list- has work options to call for therapist walk in clinic therapist discuss with [facility] Long-term drug therapy. 04/16/2025 Primary insomnia (ICD-10 - F51.01) Learning About Sleeping Well material was published, Insomnia: Care Instructions material was published, Insomnia: Care Instructions material was published, Learning About Sleeping Well material was published 1. depression - - patient has hx inpatient [place] 12/2022 discuss and educated on all rx Abilify 5 mg at bedtime- improved depression on rx last week Second generation antipsychotics (SGAs) have metabolic syndrome issues with weight gain, increase in prolactin, increased waist circumference, increased lipids, and increased glucose. Thus routine monitoring of weight, metabolic labs, etc. is indicated. A general rank ordering of antipsychotics that have the greatest to the least risk of metabolic effects is olanzapine, quetiapine, risperidone, ziprasidone, and aripiprazole. However, weight gain can occur with all of these drugs and considerable variability exists among patients receiving the same drug regarding the risk of metabolic effects. Anti-psychotic agents not only increase the risk of metabolic disorder, they also increase the risk of CVA, akathisia, and movement disorders including EPS or tardive dyskinesia (more common with first generation antipsychotics) and more. - [facility] 06/22 FLIA forms completed- need to have updated for 04/23 dates off work - completed today duloxetine 90 mg capsule, daily in am for depression and anxiety no refill needed 2. Generalized anxiety disorder - Cymblata 90 mg daily continue therapy- Patient reported does not want to attend [facility] again r/t work discuss walk in clinic to see Bea at [facility] - will go PRN plans to go to work program then refer to therapist with job SSRI side effects discussed including but not limited to, gastric upset, nausea, vomiting, diarrhea and/or constipation, weight changes, sexual side effects including loss of libido, increased suicidal thoughts/behavio rs in children and young adults, and serotonin syndrome. educated on all medications, benefits, side effects and risk, and educated on depression, anxiety, and ADHD, mood d/o and educated on compliance of medications, metabolic and movement d/o education appointment's, continue therapy discussion with patient about course of treatmentand patient instructions. education on serotonin syndrome 3. Primary insomnia - sleep hygeine 4.passive suicide thoughts- Improved on Abilify no plans or intent educated on [id number]/911 Support system safety plan- friend stay with her plan to go to Bea therapy [facility] 04/12/25 limited rx at a time no weapons in home go to nearest ER if have passive/active thoughts, plans or intent schedule therapy- on wait list- has work options to call for therapist walk in clinic therapist discuss with [facility] Long-term drug therapy. 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 depression - - patient has hx inpatient [place] 12/2022 discuss and educated on all rx Abilify 5 mg at bedtime- improved depression on rx last week Second generation antipsychotics (SGAs) have metabolic syndrome issues with weight gain, increase in prolactin, increased waist circumference, increased lipids, and increased glucose. Thus routine monitoring of weight, metabolic labs, etc. is indicated. A general rank ordering of antipsychotics that have the greatest to the least risk of metabolic effects is olanzapine, quetiapine, risperidone, ziprasidone, and aripiprazole. However, weight gain can occur with all of these drugs and considerable variability exists among patients receiving the same drug regarding the risk of metabolic effects. Anti-psychotic agents not only increase the risk of metabolic disorder, they also increase the risk of CVA, akathisia, and movement disorders including EPS or tardive dyskinesia (more common with first generation antipsychotics) and more. - [facility] 06/22 FLMA forms completed- need to have updated for 04/23 dates off work - completed today duloxetine 90 mg capsule, daily in am for depression and anxiety no refill needed 2. Generalized anxiety disorder - Cymblata 90 mg daily continue therapy- Patient reported does not want to attend [facility] again r/t work discuss walk in clinic to see Bea at [facility] - will go PRN plans to go to work program then refer to therapist with job SSRI side effects discussed including but not limited to, gastric upset, nausea, vomiting, diarrhea and/or constipation, weight changes, sexual side effects including loss of libido, increased suicidal thoughts/behavio rs in children and young adults, and serotonin syndrome. educated on all medications, benefits, side effects and risk, and educated on depression, anxiety, and ADHD, mood d/o and educated on compliance of medications, metabolic and movement d/o education appointment's, continue therapy discussion with patient about course of treatmentand patient instructions. education on serotonin syndrome 3. Primary insomnia - sleep hygeine 4.passive suicide thoughts- Improved on Abilify no plans or intent educated on [id number]/911 Support system safety plan- friend stay with her plan to go to Bea therapy [facility] 04/12/25 limited rx at a time no weapons in home go to nearest ER if have passive/active thoughts, plans or intent schedule therapy- on wait list- has work options to call for therapist walk in clinic therapist discuss with [facility] Long-term drug therapy. 04/11/2025 Other intermediate (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 (ICD-10 - Z79.899) Medication Refill: Care Instructions material was published, Medication Refill: Care Instructions material was published 1. depression - - patient has hx inpatient [place] 12/2022 discuss and educated on add Abilify 5 mg at bedtime Second generation antipsychotics (SGAs) have metabolic syndrome issues with weight gain, increase in prolactin, increased waist circumference, increased lipids, and increased glucose. Thus routine monitoring of weight, metabolic labs, etc. is indicated. A general rank ordering of antipsychotics that have the greatest to the least risk of metabolic effects is olanzapine, quetiapine, risperidone, ziprasidone, and aripiprazole. However, weight gain can occur with all of these drugs and considerable variability exists among patients receiving the same drug regarding the risk of metabolic effects. Anti-psychotic agents not only increase the risk of metabolic disorder, they also increase the risk of CVA, akathisia, and movement disorders including EPS or tardive dyskinesia (more common with first generation antipsychotics) and more. - [facility] 06/22 FLIA forms completed- need to have updated for 04/23 dates off work - patient will send new forms duloxetine 90 mg capsule, daily in am for depression and anxiety no refill needed 2. Generalized anxiety disorder - Cymblata 90 mg daily continue therapy- pateint will call [facility] for new therapist - Patient reported does not want to attend [facility] again r/t work discuss walk in clinic to see Bea at [facility] - plans to go 04/12/25 SSRI side effects discussed including but not limited to, gastric upset, nausea, vomiting, diarrhea and/or constipation, weight changes, sexual side effects including loss of libido, increased suicidal thoughts/behavio rs in children and young adults, and serotonin syndrome. educated on all medications, benefits, side effects and risk, and educated on depression, anxiety, and ADHD, mood d/o and educated on compliance of medications, metabolic and movement d/o education appointment's, continue therapy discussion with patient about course of treatmentand patient instructions. education on serotonin syndrome 3. Primary insomnia - sleep hygeine 4.passive suicide thoughts no plans or intent educated on [id number]/911 Support system safety plan- friend stay with her plan to go to Bea therapy [facility] 04/12/25 limited rx at a time no weapons in home go to nearest ER if have passive/active thoughts, plans or intent schedule therapy- on wait list- has work options to call for therapist walk in clinic therapist discuss with [facility] Long-term drug therapy. 10/31/2024 Primary insomnia (ICD-10 - F51.01) Learning About Sleeping Well material was published, Insomnia: Care Instructions material was published, Insomnia: Care Instructions material was published, Learning About Sleeping Well material was published 1. depression - - patient has hx inpatient [place] 12/2022 - [facility] 06/22 duloxetine 60 mg capsule, 2. Generalized anxiety disorder - Cymblata 60 mg daily continue therapy SSRI side effects discussed including but not limited to, gastric upset, nausea, vomiting, diarrhea and/or constipation, weight changes, sexual side effects including loss of libido, increased suicidal thoughts/behavio rs in children and young adults, and serotonin syndrome. educated on all medications, benefits, side effects and risk, and educated on depression, anxiety, and ADHD, mood d/o and educated on compliance of medications, metabolic and movement d/o education appointment's, continue therapy discussion with patient about course of treatmentand patient instructions. education on serotonin syndrome 3. Primary insomnia - sleep hygeine 4. Long-term drug therapy. 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 depression - - patient has hx inpatient [place] 12/2022 - [employer] 06/22 [employer] forms completed increase duloxetine 90 mg capsule, daily in am for increase depression and anxiety patient just recieved 90 days of 60 mg dose no refill needed rx sent Cymbalta 30 mg dose 2. Generalized anxiety disorder - Cymblata 90 mg daily continue therapy- pateint will call [facility] for new therapist and also will see Bea in walk in clinic [facility] SSRI side effects discussed including but not limited to, gastric upset, nausea, vomiting, diarrhea and/or constipation, weight changes, sexual side effects including loss of libido, increased suicidal thoughts/behavio rs in children and young adults, and serotonin syndrome. educated on all medications, benefits, side effects and risk, and educated on depression, anxiety, and ADHD, mood d/o and educated on compliance of medications, metabolic and movement d/o education appointment's, continue therapy discussion with patient about course of treatmentand patient instructions. education on serotonin syndrome 3. Primary insomnia - sleep hygeine 4. Long-term drug therapy. 03/20/2025 Suicidal risk (ICD-10 - R45.89) Learning About Mood Disorders material was published, Learning About Validating Your Child's Emotions material was published, Learning About Mood Disorders material was published 1. depression - - patient has hx inpatient [place] 12/2022 - [employer] 06/22 FLMA forms completed increase duloxetine 90 mg capsule, daily in am for increase depression and anxiety patient just recieved 90 days of 60 mg dose no refill needed rx sent Cymbalta 30 mg dose 2. Generalized anxiety disorder - Cymblata 90 mg daily continue therapy- pateint will call [facility] program [facility] for new therapist and also will see Bea in walk in clinic [facility] SSRI side effects discussed including but not limited to, gastric upset, nausea, vomiting, diarrhea and/or constipation, weight changes, sexual side effects including loss of libido, increased suicidal thoughts/behavio rs in children and young adults, and serotonin syndrome. educated on all medications, benefits, side effects and risk, and educated on depression, anxiety, and ADHD, mood d/o and educated on compliance of medications, metabolic and movement d/o education appointment's, continue therapy discussion with patient about course of treatmentand patient instructions. education on serotonin syndrome 3. Primary insomnia - sleep hygeine 4. Long-term drug therapy. 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 depression - - patient has hx inpatient [place] 12/2022 - [facility] 06/22 duloxetine 60 mg capsule, 2. Generalized anxiety disorder - Cymblata 60 mg daily continue therapy SSRI side effects discussed including but not limited to, gastric upset, nausea, vomiting, diarrhea and/or constipation, weight changes, sexual side effects including loss of libido, increased suicidal thoughts/behavio rs in children and young adults, and serotonin syndrome. educated on all medications, benefits, side effects and risk, and educated on depression, anxiety, and ADHD, mood d/o and educated on compliance of medications, metabolic and movement d/o education appointment's, continue therapy discussion with patient about course of treatmentand patient instructions. education on serotonin syndrome 3. Primary insomnia - sleep hygeine 4. Long-term drug therapy. 04/11/2025 Suicidal risk (ICD-10 - R45.89) Learning About Mood Disorders material was published, Learning About Validating Your Child's Emotions material was published, Learning About Mood Disorders material was published 1. depression - - patient has hx inpatient [place] 12/2022 discuss and educated on add Abilify 5 mg at bedtime Second generation antipsychotics (SGAs) have metabolic syndrome issues with weight gain, increase in prolactin, increased waist circumference, increased lipids, and increased glucose. Thus routine monitoring of weight, metabolic labs, etc. is indicated. A general rank ordering of antipsychotics that have the greatest to the least risk of metabolic effects is olanzapine, quetiapine, risperidone, ziprasidone, and aripiprazole. However, weight gain can occur with all of these drugs and considerable variability exists among patients receiving the same drug regarding the risk of metabolic effects. Anti-psychotic agents not only increase the risk of metabolic disorder, they also increase the risk of CVA, akathisia, and movement disorders including EPS or tardive dyskinesia (more common with first generation antipsychotics) and more. - [facility] 06/22 FLIA forms completed- need to have updated for 04/23 dates off work - patient will send new forms duloxetine 90 mg capsule, daily in am for depression and anxiety no refill needed 2. Generalized anxiety disorder - Cymblata 90 mg daily continue therapy- pateint will call [facility] for new therapist - Patient reported does not want to attend [facility] again r/t work discuss walk in clinic to see Bea at [facility] - plans to go 04/12/25 SSRI side effects discussed including but not limited to, gastric upset, nausea, vomiting, diarrhea and/or constipation, weight changes, sexual side effects including loss of libido, increased suicidal thoughts/behavio rs in children and young adults, and serotonin syndrome. educated on all medications, benefits, side effects and risk, and educated on depression, anxiety, and ADHD, mood d/o and educated on compliance of medications, metabolic and movement d/o education appointment's, continue therapy discussion with patient about course of treatmentand patient instructions. education on serotonin syndrome 3. Primary insomnia - sleep hygeine 4.passive suicide thoughts no plans or intent educated on [id number] Support system safety plan- friend stay with her plan to go to Bea therapy [facility] 04/12/25 limited rx at a time no weapons in home go to nearest ER if have passive/active thoughts, plans or intent schedule therapy- on wait list- has work options to call for therapist walk in clinic therapist discuss with [facility] Long-term drug therapy. 04/16/2025 Suicidal risk (ICD-10 - R45.89) Learning About Mood Disorders material was published, Learning About Validating Your Child's Emotions material was published, Learning About Mood Disorders material was published 1. depression - - patient has hx inpatient [place] 12/2022 discuss and educated on all rx Abilify 5 mg at bedtime- improved depression on rx last week Second generation antipsychotics (SGAs) have metabolic syndrome issues with weight gain, increase in prolactin, increased waist circumference, increased lipids, and increased glucose. Thus routine monitoring of weight, metabolic labs, etc. is indicated. A general rank ordering of antipsychotics that have the greatest to the least risk of metabolic effects is olanzapine, quetiapine, risperidone, ziprasidone, and aripiprazole. However, weight gain can occur with all of these drugs and considerable variability exists among patients receiving the same drug regarding the risk of metabolic effects. Anti-psychotic agents not only increase the risk of metabolic disorder, they also increase the risk of CVA, akathisia, and movement disorders including EPS or tardive dyskinesia (more common with first generation antipsychotics) and more. - [facility] 06/22 [employer]MA forms completed- need to have updated for 04/23 dates off work - completed today duloxetine 90 mg capsule, daily in am for depression and anxiety no refill needed 2. Generalized anxiety disorder - Cymblata 90 mg daily continue therapy- Patient reported does not want to attend [facility] again r/t work discuss walk in clinic to see Bea at [facility] - will go PRN plans to go to work program then refer to therapist with job SSRI side effects discussed including but not limited to, gastric upset, nausea, vomiting, diarrhea and/or constipation, weight changes, sexual side effects including loss of libido, increased suicidal thoughts/behavio rs in children and young adults, and serotonin syndrome. educated on all medications, benefits, side effects and risk, and educated on depression, anxiety, and ADHD, mood d/o and educated on compliance of medications, metabolic and movement d/o education appointment's, continue therapy discussion with patient about course of treatmentand patient instructions. education on serotonin syndrome 3. Primary insomnia - sleep hygeine 4.passive suicide thoughts- Improved on Abilify no plans or intent educated on 988/911 Support system safety plan- friend stay with her plan to go to Bea therapy [facility] 04/12/25 limited rx at a time no weapons in home go to nearest ER if have passive/active thoughts, plans or intent schedule therapy- on wait list- has work options to call for therapist walk in clinic therapist discuss with [facility] Long-term drug therapy. 04/16/2025 Suicidal ideation (ICD-10 - R45.851) Suicidal Thoughts in a Family Member: Care Instructions material was published, Suicidal Thoughts and Behavior: Care Instructions material was published, Learning About How to Get Help During a Mental Health Crisis material was published, Learning About Making a Suicide Safety Plan material was published, Suicidal Thoughts and Behavior: Care Instructions material was published, Suicidal Thoughts in a Family Member: Care Instructions material was published, Learning About Making a Suicide Safety Plan material was published 1. depression - - patient has hx inpatient [place] 12/2022 discuss and educated on all rx Abilify 5 mg at bedtime- improved depression on rx last week Second generation antipsychotics (SGAs) have metabolic syndrome issues with weight gain, increase in prolactin, increased waist circumference, increased lipids, and increased glucose. Thus routine monitoring of weight, metabolic labs, etc. is indicated. A general rank ordering of antipsychotics that have the greatest to the least risk of metabolic effects is olanzapine, quetiapine, risperidone, ziprasidone, and aripiprazole. However, weight gain can occur with all of these drugs and considerable variability exists among patients receiving the same drug regarding the risk of metabolic effects. Anti-psychotic agents not only increase the risk of metabolic disorder, they also increase the risk of CVA, akathisia, and movement disorders including EPS or tardive dyskinesia (more common with first generation antipsychotics) and more. - [facility] 06/22 [employer] forms completed- need to have updated for 04/23 dates off work - completed today duloxetine 90 mg capsule, daily in am for depression and anxiety no refill needed 2. Generalized anxiety disorder - Cymblata 90 mg daily continue therapy- Patient reported does not want to attend [facility] again r/t work discuss walk in clinic to see Bea at [facility] - will go PRN plans to go to work program then refer to therapist with job SSRI side effects discussed including but not limited to, gastric upset, nausea, vomiting, diarrhea and/or constipation, weight changes, sexual side effects including loss of libido, increased suicidal thoughts/behavio rs in children and young adults, and serotonin syndrome. educated on all medications, benefits, side effects and risk, and educated on depression, anxiety, and ADHD, mood d/o and educated on compliance of medications, metabolic and movement d/o education appointment's, continue therapy discussion with patient about course of treatmentand patient instructions. education on serotonin syndrome 3. Primary insomnia - sleep hygeine 4.passive suicide thoughts- Improved on Abilify no plans or intent educated on 988/911 Support system safety plan- friend stay with her plan to go to Bea therapy [facility] 04/12/25 limited rx at a time no weapons in home go to nearest ER if have passive/active thoughts, plans or intent schedule therapy- on wait list- has work options to call for therapist walk in clinic therapist discuss with [facility] Long-term drug therapy. 04/11/2025 Suicidal ideation (ICD-10 - R45.851) Suicidal Thoughts in a Family Member: Care Instructions material was published, Suicidal Thoughts and Behavior: Care Instructions material was published, Learning About How to Get Help During a Mental Health Crisis material was published, Learning About Making a Suicide Safety Plan material was published, Suicidal Thoughts and Behavior: Care Instructions material was published, Suicidal Thoughts in a Family Member: Care Instructions material was published, Learning About Making a Suicide Safety Plan material was published 1. depression - - patient has inpatient [place] 12/2022 discuss and educated on add Abilify 5 mg at bedtime Second generation antipsychotics (SGAs) have metabolic syndrome issues with weight gain, increase in prolactin, increased waist circumference, increased lipids, and increased glucose. Thus routine monitoring of weight, metabolic labs, etc. is indicated. A general rank ordering of antipsychotics that have the greatest to the least risk of metabolic effects is olanzapine, quetiapine, risperidone, ziprasidone, and aripiprazole. However, weight gain can occur with all of these drugs and considerable variability exists among patients receiving the same drug regarding the risk of metabolic effects. Anti-psychotic agents not only increase the risk of metabolic disorder, they also increase the risk of CVA, akathisia, and movement disorders including EPS or tardive dyskinesia (more common with first generation antipsychotics) and more. - [facility] 06/22 FLMA forms completed- need to have updated for 04/23 dates off work - patient will send new forms duloxetine 90 mg capsule, daily in am for depression and anxiety no refill needed 2. Generalized anxiety disorder - Cymblata 90 mg daily continue therapy- [facility]ateint [facility] - Patient reported does not want to attend [facility] again r/t work discuss walk in clinic to see Bea at [facility] - plans to go 04/12/25 SSRI side effects discussed including but not limited to, gastric upset, nausea, vomiting, diarrhea and/or constipation, weight changes, sexual side effects including loss of libido, increased suicidal thoughts/behavio rs in children and young adults, and serotonin syndrome. educated on all medications, benefits, side effects and risk, and educated on depression, anxiety, and ADHD, mood d/o and educated on compliance of medications, metabolic and movement d/o education appointment's, continue therapy discussion with patient about course of treatmentand patient instructions. education on serotonin syndrome 3. Primary insomnia - sleep hygeine 4.passive suicide thoughts no plans or intent educated on 988/911 Support system safety plan- friend stay with her plan to go to Bea therapy [facility] 04/12/25 limited rx at a time no weapons in home go to nearest ER if have passive/active thoughts, plans or intent schedule therapy- on wait list- has work options to call for therapist walk in clinic therapist discuss with [facility] Long-term drug therapy. 10/31/2024 Suicidal risk (ICD-10 - R45.89) Learning About Mood Disorders material was published, Learning About Validating Your Child's Emotions material was published, Learning About Mood Disorders material was published 1. depression - - patient has hx inpatient [place] 12/2022 - [facility] 06/22 duloxetine 60 mg capsule, 2. Generalized anxiety disorder - Cymblata 60 mg daily continue therapy SSRI side effects discussed including but not limited to, gastric upset, nausea, vomiting, diarrhea and/or constipation, weight changes, sexual side effects including loss of libido, increased suicidal thoughts/behavio rs in children and young adults, and serotonin syndrome. educated on all medications, benefits, side effects and risk, and educated on depression, anxiety, and ADHD, mood d/o and educated on compliance of medications, metabolic and movement d/o education appointment's, continue therapy discussion with patient about course of treatmentand patient instructions. education on serotonin syndrome 3. Primary insomnia - sleep hygeine 4. Long-term drug therapy. 03/20/2025 Suicidal ideation (ICD-10 - R45.851) Suicidal Thoughts in a Family Member: Care Instructions material was published, Suicidal Thoughts and Behavior: Care Instructions material was published, Learning About How to Get Help During a Mental Health Crisis material was published, Learning About Making a Suicide Safety Plan material was published, Suicidal Thoughts and Behavior: Care Instructions material was published, Suicidal Thoughts in a Family Member: Care Instructions material was published 1. depression - - patient has hx inpatient [place] 12/2022 - [facility] 06/22 FLMA forms completed increase duloxetine 90 mg capsule, daily in am for increase depression and anxiety patient just recieved 90 days of 60 mg dose no refill needed rx sent Cymbalta 30 mg dose 2. Generalized anxiety disorder - Cymblata 90 mg daily continue therapy- pateint will call [facility] for new therapist and also will see Bea in walk in clinic [facility] SSRI side effects discussed including but not limited to, gastric upset, nausea, vomiting, diarrhea and/or constipation, weight changes, sexual side effects including loss of libido, increased suicidal thoughts/behavio rs in children and young adults, and serotonin syndrome. educated on all medications, benefits, side effects and risk, and educated on depression, anxiety, and ADHD, mood d/o and educated on compliance of medications, metabolic and movement d/o education appointment's, continue therapy discussion with patient about course of treatmentand patient instructions. education on serotonin syndrome 3. Primary insomnia - sleep hygeine 4. Long-term drug therapy. 10/31/2024 Suicidal ideation (ICD-10 - R45.851) Suicidal Thoughts in a Family Member: Care Instructions material was published, Suicidal Thoughts and Behavior: Care Instructions material was published, Learning About How to Get Help During a Mental Health Crisis material was published, Learning About Making a Suicide Safety Plan material was published, Suicidal Thoughts and Behavior: Care Instructions material was published, Suicidal Thoughts in a Family Member: Care Instructions material was published 1. depression - - patient has hx inpatient [place] 12/2022 - [facility] 06/22 duloxetine 60 mg capsule, 2. Generalized anxiety disorder - Cymblata 60 mg daily continue therapy SSRI side effects discussed including but not limited to, gastric upset, nausea, vomiting, diarrhea and/or constipation, weight changes, sexual side effects including loss of libido, increased suicidal thoughts/behavio rs in children and young adults, and serotonin syndrome. educated on all medications, benefits, side effects and risk, and educated on depression, anxiety, and ADHD, mood d/o and educated on compliance of medications, metabolic and movement d/o education appointment's, continue therapy discussion with patient about course of treatmentand patient instructions. education on serotonin syndrome 3. Primary insomnia - sleep hygeine 4. Long-term drug therapy. 03/20/2025 Other Learning About Depression material was published, Preventing Depression From Coming Back: Care Instructions material was published, Learning About Depression Screening material was published, Seasonal Affective Disorder: Care Instructions material was published, Preventing Depression From Coming Back: Care Instructions material was published, Learning About How to Get Help During a Mental Health Crisis material was published, Learning About Depression material was published, Learning About Depression Screening material was published 1. depression - - patient has hx inpatient [place] 12/2022 - [facility] 06/22 FLMA forms completed increase duloxetine 90 mg capsule, daily in am for increase depression and anxiety patient just recieved 90 days of 60 mg dose no refill needed rx sent Cymbalta 30 mg dose 2. Generalized anxiety disorder - Cymblata 90 mg daily continue therapy- pateint will call [facility] for new therapist and also will see Bea in walk in clinic [facility] SSRI side effects discussed including but not limited to, gastric upset, nausea, vomiting, diarrhea and/or constipation, weight changes, sexual side effects including loss of libido, increased suicidal thoughts/behavio rs in children and young adults, and serotonin syndrome. educated on all medications, benefits, side effects and risk, and educated on depression, anxiety, and ADHD, mood d/o and educated on compliance of medications, metabolic and movement d/o education appointment's, continue therapy discussion with patient about course of treatmentand patient instructions. education on serotonin syndrome 3. Primary insomnia - sleep hygeine 4. Long-term drug therapy. 04/11/2025 Other Aripiprazole material was published 1. depression - - patient has hx inpatient [place] 12/2022 discuss and educated on add Abilify 5 mg at bedtime Second generation antipsychotics (SGAs) have metabolic syndrome issues with weight gain, increase in prolactin, increased waist circumference, increased lipids, and increased glucose. Thus routine monitoring of weight, metabolic labs, etc. is indicated. A general rank ordering of antipsychotics that have the greatest to the least risk of metabolic effects is olanzapine, quetiapine, risperidone, ziprasidone, and aripiprazole. However, weight gain can occur with all of these drugs and considerable variability exists among patients receiving the same drug regarding the risk of metabolic effects. Anti-psychotic agents not only increase the risk of metabolic disorder, they also increase the risk of CVA, akathisia, and movement disorders including EPS or tardive dyskinesia (more common with first generation antipsychotics) and more. - [facility] 06/22 FLIA forms completed- need to have updated for 04/23 dates off work - patient will send new forms duloxetine 90 mg capsule, daily in am for depression and anxiety no refill needed 2. Generalized anxiety disorder - Cymblata 90 mg daily continue therapy- pateint will call [facility] for new therapist - Patient reported does not want to attend [facility] again r/t work discuss walk in clinic to see Bea at [facility] - plans to go 04/12/25 SSRI side effects discussed including but not limited to, gastric upset, nausea, vomiting, diarrhea and/or constipation, weight changes, sexual side effects including loss of libido, increased suicidal thoughts/behavio rs in children and young adults, and serotonin syndrome. educated on all medications, benefits, side effects and risk, and educated on depression, anxiety, and ADHD, mood d/o and educated on compliance of medications, metabolic and movement d/o education appointment's, continue therapy discussion with patient about course of treatmentand patient instructions. education on serotonin syndrome 3. Primary insomnia - sleep hygeine 4.passive suicide thoughts no plans or intent educated on 881/631 Support system safety plan- friend stay with her plan to go to Bea therapy [facility] 04/12/25 limited rx at a time no weapons in home go to nearest ER if have passive/active thoughts, plans or intent schedule therapy- on wait list- has work options to call for therapist walk in clinic therapist discuss with [facility] Long-term drug therapy. 04/16/2025 Other Preventing Depression From Coming Back: Care Instructions material was published, Depression Treatment: Care Instructions material was published, Seasonal Affective Disorder: Care Instructions material was published, Learning About Depression material was published, Learning About Depression Screening material was published, Learning About How to Get Help During a Mental Health Crisis material was published, Recovering From Depression: Care Instructions material was published, Depression and Chronic Disease: Care Instructions material was published, Learning About Antidepressants material was published, Learning About Transcranial Magnetic Stimulation (TMS) material was published, Suicidal Thoughts and Behavior: Care Instructions material was published, Learning About Mood Disorders material was published 1. depression - - patient has hx inpatient [place] 12/2022 discuss and educated on all rx Abilify 5 mg at bedtime- improved depression on rx last week Second generation antipsychotics (SGAs) have metabolic syndrome issues with weight gain, increase in prolactin, increased waist circumference, increased lipids, and increased glucose. Thus routine monitoring of weight, metabolic labs, etc. is indicated. A general rank ordering of antipsychotics that have the greatest to the least risk of metabolic effects is olanzapine, quetiapine, risperidone, ziprasidone, and aripiprazole. However, weight gain can occur with all of these drugs and considerable variability exists among patients receiving the same drug regarding the risk of metabolic effects. Anti-psychotic agents not only increase the risk of metabolic disorder, they also increase the risk of CVA, akathisia, and movement disorders including EPS or tardive dyskinesia (more common with first generation antipsychotics) and more. - [facility] 06/22 FLMA forms completed- need to have updated for 04/23 dates off work - completed today duloxetine 90 mg capsule, daily in am for depression and anxiety no refill needed 2. Generalized anxiety disorder - Cymblata 90 mg daily continue therapy- Patient reported does not want to attend [facility] again r/t work discuss walk in clinic to see Bea at [facility] - will go [facility]N plans to go to work program then refer to therapist with job SSRI side effects discussed including but not limited to, gastric upset, nausea, vomiting, diarrhea and/or constipation, weight changes, sexual side effects including loss of libido, increased suicidal thoughts/behavio rs in children and young adults, and serotonin syndrome. educated on all medications, benefits, side effects and risk, and educated on depression, anxiety, and ADHD, mood d/o and educated on compliance of medications, metabolic and movement d/o education appointment's, continue therapy discussion with patient about course of treatmentand patient instructions. education on serotonin syndrome 3. Primary insomnia - sleep hygeine 4.passive suicide thoughts- Improved on Abilify no plans or intent educated on [id number]/911 Support system safety plan- friend stay with her plan to go to [facility] therapy [facility] 04/12/25 limited rx at a time no weapons in home go to nearest ER if have passive/active thoughts, plans or intent schedule therapy- on wait list- has work options to call for therapist walk in clinic therapist discuss with [facility] Long-term drug therapy. Plan Of Treatment No Information Insurance Providers Payer Name Payer Address Payer Phone Subscriber Number Group Number Insured Name Patient Relationship to Insured Coverage Start Date Coverage End Date [employer] [address] [place] [id number] NATALYA GONZALEZ Self - patient is the insured Medical (General) History Medical History History ICD Code Problems: Generalized anxiety disorder Long-term drug therapy Mild recurrent major depression Nondependent cannabis abuse, continuous Primary insomnia Severe recurrent major depression withou t psychotic features , Past Psychiatric Hospitaliza tions: Y - 01/19 Methods use: Cutting: Y - age 22's self cutting Anxiety Disorder: Y Depression Major: Y Panic Episodes: Y GI Problems: Y - Sibo dxn Headaches Migraines: Y Vision or Eye Problems: Y Notes: Anxiety
--- OUTSIDE RECORDS SUMMARY | 2025-05-29 22:38 | XMS_ITS | Clinical Summary ---
Author Organization [address] [address] Care Team Providers Care Color Grinder Name Role Phone Unknown, Notinfile Primary Care Provider Unavail able Allergies No known active allergies Medications No known medications Active Problems No known active problems Encounters Date Type Department Care Team Description 05/15/2025 6:30 PM CDT Office Visit [facility] at [address] [address] Kamala Elizalde NP Functional diarrhea (Primary Dx); Encounter to obtain excuse from work from Last 3 Months Social History Tobacco Use Types Packs/Day Years Used Date Smoking Tobacco: Never Assessed Comments Unknown Sex and Gender Information Value Date Recorded Sex Assigned at Not on file Legal Sex Female 6:04 PM CDT Gender Identity Not on file Sexual Orientation Not on file Obstetrics History Last Filed Vital Signs Vital Sign Reading Time Taken Comments Blood Pressure 112/73 05/15/2025 6:22 PM CDT Pulse 72 05/15/2025 6:22 PM CDT Temperature 37.1 C (98.7 F) 05/15/2025 6:22 PM CDT Respiratory Rate 20 05/15/2025 6:22 PM CDT Oxygen Saturation 98% 05/15/2025 6:22 PM CDT Inhaled Oxygen Concentration - - Weight 50.5 kg (111 lb 4.8 oz) 05/15/2025 6:22 P M CDT Height - - Body Mass Index - - Plan of Treatment Health Maintenance Due Date Last Done Comments Cervical Cancer Screening 1987 Depression Screening 1987 Hepatitis C Screening 1987 DTaP/Tdap/Td Vaccine (1 - Tdap) 1998 Varicella Vaccines (1 of 2 - 13+ 2-dose series) 2000 Hepatitis B Screening 2005 Regular Well Visit/Exam 18-64 2005 HPV Vaccines (1 - 3-dose SCD M series) 2014 Influenza Vaccine (#1) 2025 06/13/2020 Pneumococcal vaccine <65 Aged Out No longer eligible based on patient's age to complete this topic Insurance [employer] [facility] Care Teams Color Grinder Relationship Specialty Start Date End Date Unknown, Notinfile PCP - General 05/15/25
== END 2025-05-29 22:34 | disposition left against medical advice (07) ==
LOC: ANHED 22:33
PROVIDERS: PCP Family Medicine
DX: R11.2 Nausea with vomiting, unspecified (principal)
CPT/HCPCS: 99199